=== PATIENT | female | born 1940 | race Caucasian/White ===

== ENCOUNTER 2017-11-29 12:51 | Inpatient (IN) ==
[2017-11-29] MEDS ORDERED: PNEUMOCOCCAL VACCINE (13 VALENT) 0.5 ML SYRINGE IM ONE (17:06)
[2017-11-29] MEDS ORDERED: ONDANSETRON 4 MG/2 ML VIAL IV PRN (18:02)
[2017-11-29] MEDS ORDERED: POTASSIUM GLUCONATE 500 MG TABLET PO PRN (18:04)
[2017-11-29] MEDS ORDERED: FUROSEMIDE 20 MG TABLET PO PRN (18:04)
[2017-11-29] MEDS ORDERED: METOPROLOL SUCCINATE XL 50 MG TABLET PO SCH (21:00)
[2017-11-29] MEDS: APIXABAN 5 MG TABLET PO SCH (21:43)
[2017-11-29] MEDS: GABAPENTIN 100 MG CAPSULE PO SCH (21:43)
[2017-11-29] MEDS: ESCITALOPRAM 10 MG TABLET PO SCH (21:44)
[2017-11-30 00:58] LABS: Basophils % 0.6 % (0.0-0.8); Eosinophils # 0.2 10*3/uL (0.0-0.87); Eosinophils % 3.7 % (0.00-10.9); Hematocrit 34.9 VOL% (35.7-47.0); Immature Granulocytes % 0.3 %; Immature Granulocytes Absolute 0.02 #; Lymphocytes # 2.1 10*3/uL (1.4-4.0); Lymphocytes % 31.6 % (21.3-54.2); Mean Corpuscular HGB Conc 31.5 GM/DL (32-36); Mean Corpuscular Hemoglobin 29 PG (27-34); Mean Corpuscular Volume 91.1 FL (87-102); Mean Platelet Volume 9.8 FL (9.6-12.0); Monocytes # 0.8 10*3/uL (0.11-0.8); Monocytes % 12.5 % (1.7-12.7); Neutrophils # 3.3 10*3/uL (1.4-7.4); Neutrophils % 51.3 % (38.7-73.9); Platelet Count 291 T/CUMM (130-400); Red Blood Count 3.83 MC/CUMM (3.8-5.5); Red Cell Distribution Width 14.8 % (9.3-17.3); White Blood Count 6.5 T/CUMM (4-12)
[2017-11-30 01:27] LABS: Albumin 2.6 G/DL (3.4-5.0); Bilirubin,Total 0.4 MG/DL (0.2-1.0); Calcium 8.8 MG/DL (8.5-10.1); Osmolality,Calculated 273.8 MOS/KG (273-304); Risk Ratio 3.16; Thyroid Stimulating Hormone 1.72 uIU/ml (0.358-3.74); Total Protein 7.2 G/DL (6.4-8.3); VLDL CHOLESTEROL 27.2 MG/DL
[2017-11-30] MEDS: APIXABAN 5 MG TABLET PO SCH (08:28)
[2017-11-30] MEDS: MULTIVITAMIN (OCUVITE) TABLET PO SCH (08:28)
[2017-11-30] MEDS: FOLIC ACID 0.4 MG TABLET PO SCH (08:28)
[2017-11-30] MEDS: LISINOPRIL/HCTZ 20-12.5 MG TABLET PO SCH (08:28)
[2017-11-30] MEDS: GABAPENTIN 100 MG CAPSULE PO SCH ×3 (08:28→21:07)
[2017-11-30] MEDS ORDERED: DILTIAZEM CD 120 MG CAPSULE PO SCH (09:00)
[2017-11-30] MEDS ORDERED: hydrALAZINE 20 MG/1 ML VIAL IV PRN (18:13)
[2017-11-30] MEDS ORDERED: METOPROLOL TARTRATE 5 MG/5 ML VIAL IV ONE (18:13)
[2017-11-30] MEDS ORDERED: DILTIAZEM 50 MG/10 ML VIAL IV ONE (18:42)
[2017-11-30] MEDS ORDERED: DILTIAZEM 100 MG VIAL.ADD IV ONE (18:43)
[2017-11-30] MEDS ORDERED: SODIUM CHLORIDE 0.9% 100 ML IV ONE (18:43)
[2017-11-30] MEDS ORDERED: DILTIAZEM INJ 100 MG in SODIUM CHLORIDE 0.9% 100 ML IV SCH (19:00)
[2017-11-30] MEDS: PRAMIPEXOLE 0.25 MG TABLET PO SCH ×2 (20:59→21:01)
[2017-11-30] MEDS: ESCITALOPRAM 10 MG TABLET PO SCH (21:00)
[2017-12-01 04:48] LABS: Basophils % 0.6 % (0.0-0.8); Eosinophils # 0.2 10*3/uL (0.0-0.87); Eosinophils % 3.7 % (0.00-10.9); Hematocrit 38.6 VOL% (35.7-47.0); Hemoglobin 12.1 GM/DL (12.0-16.0); Immature Granulocytes % 0.2 %; Immature Granulocytes Absolute 0.01 #; Lymphocytes # 1.6 10*3/uL (1.4-4.0); Lymphocytes % 25.9 % (21.3-54.2); Mean Corpuscular HGB Conc 31.3 GM/DL (32-36); Mean Corpuscular Hemoglobin 29 PG (27-34); Mean Corpuscular Volume 91.3 FL (87-102); Mean Platelet Volume 10.6 FL (9.6-12.0); Monocytes # 0.6 10*3/uL (0.11-0.8); Monocytes % 10.2 % (1.7-12.7); Neutrophils # 3.7 10*3/uL (1.4-7.4); Neutrophils % 59.4 % (38.7-73.9); Platelet Count 297 T/CUMM (130-400); Red Blood Count 4.23 MC/CUMM (3.8-5.5); Red Cell Distribution Width 14.8 % (9.3-17.3); White Blood Count 6.3 T/CUMM (4-12)
[2017-12-01 05:17] LABS: Calcium 9.1 MG/DL (8.5-10.1); Osmolality,Calculated 286.1 MOS/KG (273-304); Potassium 4.2 MMOL/L (3.5-5.1)
[2017-12-01] MEDS: GABAPENTIN 100 MG CAPSULE PO SCH ×2 (09:26→21:10)
[2017-12-01] MEDS: LISINOPRIL/HCTZ 20-12.5 MG TABLET PO SCH (09:26)
[2017-12-01] MEDS: FOLIC ACID 0.4 MG TABLET PO SCH (09:26)
[2017-12-01] MEDS: MULTIVITAMIN (OCUVITE) TABLET PO SCH (09:26)
[2017-12-01] MEDS ORDERED: ceFAZolin 1,000 MG in SYRINGE 1 EACH IV ONE (13:00)
[2017-12-01] MEDS ORDERED: HEPARIN/NACL 0.9% 2 UNITS/ML 500 ML IV ONE (13:03)
[2017-12-01] MEDS ORDERED: LIDOCAINE 1% 20 ML VIAL ONE (13:03)
[2017-12-01] MEDS ORDERED: ceFAZolin 1,000 MG VIAL ONE (13:03)
[2017-12-01] MEDS ORDERED: ceFAZolin 1,000 MG VIAL IRRIG ONE (13:30)
[2017-12-01] MEDS ORDERED: TISSUE ADHESIVE 1 EACH APPLICATOR TOP ONE (13:59)
[2017-12-01] MEDS ORDERED: fentaNYL 100 MCG/2 ML VIAL ONE ×2 (14:08→14:18)
[2017-12-01] MEDS ORDERED: MIDAZOLAM 2 MG/2 ML VIAL ONE ×2 (14:08→14:18)
[2017-12-01] MEDS ORDERED: ONDANSETRON 4 MG/2 ML VIAL ONE (14:09)
[2017-12-01] MEDS ORDERED: ACETAMINOPHEN 325 MG TABLET PO PRN (15:19)
[2017-12-01] MEDS: METOPROLOL TARTRATE 50 MG TABLET PO SCH (21:10)
[2017-12-01] MEDS: ESCITALOPRAM 10 MG TABLET PO SCH (21:10)
[2017-12-01] MEDS: PRAMIPEXOLE 0.25 MG TABLET PO SCH (21:10)
[2017-12-02 04:09] LABS: Basophils % 0.5 % (0.0-0.8); Eosinophils # 0.3 10*3/uL (0.0-0.87); Eosinophils % 4.4 % (0.00-10.9); Hematocrit 35.6 VOL% (35.7-47.0); Hemoglobin 11.4 GM/DL (12.0-16.0); Immature Granulocytes % 0.5 %; Immature Granulocytes Absolute 0.03 #; Lymphocytes # 1.6 10*3/uL (1.4-4.0); Lymphocytes % 25.4 % (21.3-54.2); Mean Corpuscular Hemoglobin 30 PG (27-34); Mean Corpuscular Volume 93.4 FL (87-102); Mean Platelet Volume 9.9 FL (9.6-12.0); Monocytes # 0.7 10*3/uL (0.11-0.8); Monocytes % 10.6 % (1.7-12.7); Neutrophils # 3.8 10*3/uL (1.4-7.4); Neutrophils % 58.6 % (38.7-73.9); Platelet Count 287 T/CUMM (130-400); Red Blood Count 3.81 MC/CUMM (3.8-5.5); Red Cell Distribution Width 14.7 % (9.3-17.3); White Blood Count 6.4 T/CUMM (4-12)
[2017-12-02 04:56] LABS: Calcium 8.9 MG/DL (8.5-10.1); Osmolality,Calculated 281.4 MOS/KG (273-304)
[2017-12-02 04:58] LABS: Calcium 8.7 MG/DL (8.5-10.1); Osmolality,Calculated 277.7 MOS/KG (273-304)
[2017-12-02] MEDS: GABAPENTIN 100 MG CAPSULE PO SCH (09:09)
[2017-12-02] MEDS: FOLIC ACID 0.4 MG TABLET PO SCH (09:09)
[2017-12-02] MEDS: MULTIVITAMIN (OCUVITE) TABLET PO SCH (09:10)
[2017-12-02] MEDS: LISINOPRIL/HCTZ 20-12.5 MG TABLET PO SCH (09:14)
[2017-12-02] MEDS: METOPROLOL TARTRATE 50 MG TABLET PO SCH (09:16)
[2017-12-02 12:30] VITALS: BP 150/69
== END 2017-12-02 15:33 | disposition home or self-care (01) | DRG 244 ==
LOC: N.TELES 16:45 → SUATTDRO 16:45
PROVIDERS: ADMIT Internal Medicine; ATTEND Internal Medicine